=== PATIENT | male | born 1975 | race Caucasian/White ===

== ENCOUNTER 2021-08-21 12:32 | Inpatient (IN) | payer OTHER ==
[~2021-08-21] VITALS: Ht 182.9 cm; Wt 111.1 kg
[2021-08-21] MEDS ORDERED: LORAZEPAM 2MG/ML CPJ IV ONE (13:15)
[2021-08-21] MEDS ORDERED: SODIUM CHLORIDE 0.9% 1,000 ML IV ONE (13:15)
[2021-08-21] MEDS ORDERED: KETOROLAC 30MG/ML VIAL IV ONE (13:15)
[2021-08-21 13:38] LABS: CHLORIDE 111 mEq/L (98-107)
[2021-08-21] MEDS ORDERED: LOSARTAN POTASSIUM 100 MG TABLET PO NR (13:45)
[2021-08-21 13:48] LABS: CREATINE KINASE 249 IU/L (39-308)
[2021-08-21 15:23] LABS: BASOPHILS % 0.4 % (0.0-2.0); EOSINOPHILS % 1.5 % (0.0-5.0); HEMATOCRIT. 40.6 % (42.0-52.0); HEMOGLOBIN. 14.4 g/dL (14.0-18.0); LYMPHOCYTES % 15.9 % (20.0-50.0); MEAN CORPUSCULAR HEMOGLOBIN 29.5 pg (28.0-32.0); MEAN CORPUSCULAR VOLUME 83.5 fL (80.0-94.0); MEAN PLATELET VOLUME 7.6 fl (7.4-10.4); MONOCYTES % 7.3 % (2.0-8.0); NEUTROPHILS % 74.9 % (40.0-76.0); PLATELET 219 x1000/uL (130-400); RED BLOOD CELL COUNT 4.86 mill/uL (4.7-6.1)
[2021-08-21] MEDS ORDERED: DOCUSATE SODIUM 100MG CAPSULE PO PRN (17:45)
[2021-08-21] MEDS ORDERED: GUAIFENESIN 200MG/10ML SUGAR FREE UDC PO PRN (17:45)
[2021-08-21] MEDS ORDERED: KETOROLAC 15MG/ML VIAL IV PRN (17:45)
[2021-08-21] MEDS ORDERED: IPRATROPIUM/ALBUTEROL 0.5-3(2.5)MG/3ML NEB NEB PRN (17:45)
[2021-08-21] MEDS ORDERED: ZOLPIDEM TARTRATE 5MG TABLET PO PRN (17:45)
[2021-08-21] MEDS ORDERED: ONDANSETRON HCL 4MG/2ML INJ IV PRN (17:45)
[2021-08-21] MEDS ORDERED: ENOXAPARIN 40MG/0.4ML SYR SUBCUT SCH (17:45)
[2021-08-21] MEDS ORDERED: MAGNESIUM/ALUMINUM HYDROXIDE/SIMETHICONE 30ML UDC PO PRN (17:45)
[2021-08-21] MEDS ORDERED: NITROGLYCERIN 0.4MG TABLET SL SL PRN (17:45)
[2021-08-21] MEDS ORDERED: ACETAMINOPHEN 325MG TABLET PO PRN (17:45)
[2021-08-21] MEDS: CLONIDINE 0.1MG TABLET PO PRN (18:33)
[2021-08-21] MEDS ORDERED: ENOXAPARIN 30MG/0.3ML SYR SUBCUT SCH (21:00)
[2021-08-21] MEDS ORDERED: METOPROLOL TARTRATE 25MG TABLET PO SCH (21:00)
[2021-08-21] MEDS ORDERED: FAMOTIDINE 20MG TABLET PO SCH (21:00)
[2021-08-21 21:18] LABS: *AMPHETAMINES SCREEN URINE NEGATIVE (NEGATIVE); *BARBITURATES SCREEN URINE NEGATIVE (NEGATIVE); *BENZODIAZEPINES SCREEN URINE NEGATIVE (NEGATIVE); *COCAINE SCREEN URINE NEGATIVE (NEGATIVE); METHADONE URINE SCREEN NEGATIVE (NEGATIVE)
[2021-08-21 21:19] LABS: CANNABINOID URINE SCREEN NEGATIVE (NEGATIVE); OPIATES URINE SCREEN NEGATIVE (NEGATIVE); PHENCYCLIDINE URINE SCREEN NEGATIVE (NEGATIVE)
[2021-08-21 22:25] VITALS: BP 151/98
[2021-08-21 22:30] VITALS: BP 151/98
[2021-08-22] MEDS ORDERED: HYDR12.54 MT (03:54)
[2021-08-22] MEDS ORDERED: LOSA100T32 MT (03:54)
[2021-08-22 04:30] VITALS: BP 147/79
[2021-08-22] MEDS: METOPROLOL TARTRATE 25MG TABLET PO SCH ×2 (05:53→21:50)
[2021-08-22 07:00] LABS: BASOPHILS % 0.2 % (0.0-2.0); EOSINOPHILS % 2.3 % (0.0-5.0); HEMATOCRIT. 38.7 % (42.0-52.0); HEMOGLOBIN. 13.2 g/dL (14.0-18.0); LYMPHOCYTES % 19.8 % (20.0-50.0); MEAN CORPUSCULAR HEMOGLOBIN 28.9 pg (28.0-32.0); MEAN CORPUSCULAR VOLUME 84.6 fL (80.0-94.0); MEAN PLATELET VOLUME 7.6 fl (7.4-10.4); NEUTROPHILS % 68.7 % (40.0-76.0); PLATELET 186 x1000/uL (130-400); RED BLOOD CELL COUNT 4.57 mill/uL (4.7-6.1)
[2021-08-22 07:07] LABS: CHLORIDE 113 mEq/L (98-107)
[2021-08-22 07:12] LABS: PHOSPHORUS 3.3 mg/dL (2.5-4.9)
[2021-08-22 07:15] LABS: CREATINE KINASE 155 IU/L (39-308)
[2021-08-22 07:17] LABS: CREATINE KINASE MB FRACTION 1.2 ng/mL (0.5-3.6)
[2021-08-22 08:00] VITALS: BP 143/93
[2021-08-22] MEDS: ASPIRIN 325MG EC TABLET PO SCH (08:28)
[2021-08-22] MEDS: FAMOTIDINE 20MG TABLET PO SCH ×2 (08:28→21:50)
[2021-08-22] MEDS: ENOXAPARIN 30MG/0.3ML SYR SUBCUT SCH ×2 (08:29→21:51)
[2021-08-22] MEDS: ACETAMINOPHEN 325MG TABLET PO PRN ×2 (10:19→23:40)
[2021-08-22 12:00] VITALS: BP 140/98
[2021-08-22 14:00] VITALS: BP 142/102
[2021-08-22 16:00] VITALS: BP 142/105
[2021-08-22 16:20] LABS: CREATINE KINASE 150 IU/L (39-308)
[2021-08-22 16:21] LABS: CREATINE KINASE MB FRACTION 1.5 ng/mL (0.5-3.6)
[2021-08-22 20:00] VITALS: BP 166/99
[2021-08-22] MEDS: CLONIDINE 0.1MG TABLET PO PRN (21:50)
[2021-08-23] VITALS: BP 144/103
[2021-08-23 04:00] VITALS: BP 146/83
[2021-08-23 08:00] VITALS: BP 148/92
[2021-08-23] MEDS: METOPROLOL TARTRATE 25MG TABLET PO SCH (09:00)
[2021-08-23] MEDS: ASPIRIN 325MG EC TABLET PO SCH (09:00)
[2021-08-23] MEDS: ENOXAPARIN 30MG/0.3ML SYR SUBCUT SCH (09:00)
[2021-08-23] MEDS: FAMOTIDINE 20MG TABLET PO SCH (09:00)
[2021-08-23 09:54] VITALS: BP 148/92
== END 2021-08-23 11:30 | disposition left against medical advice (07) | DRG 923 ==
LOC: EDBD 12:32 → ER 12:55 → 6WST 15:05 → ENRESERV 21:14
PROVIDERS: ADMIT Internal Medicine; ATTEND Internal Medicine
DX: T75.4XXA Electrocution, initial encounter (principal); W86.8XXA Exposure to other electric current, initial encounter; E66.9 Obesity, unspecified; I10 Essential (primary) hypertension; I16.0 Hypertensive urgency; R00.2 Palpitations; R20.2 Paresthesia of skin; R07.89 Other chest pain; Y93.89 Activity, other specified; Y92.89 Other specified places as the place of occurrence of the external cause; Y99.8 Other external cause status; Z79.899 Other long term (current) drug therapy; Z68.33 Body mass index [BMI] 33.0-33.9, adult
CPT/HCPCS: 36415; 71045; 80053; 80305; 80320; 82550; 82553; 83605; 83735; 83880; 84100; 84484; 85025; 93005; 93306; 93970; 99285; J1650; J1885; J2060; J7030; G0480